=== PATIENT | male | born 1950 | race Caucasian/White ===

== ENCOUNTER 2017-10-04 00:13 | Emergency (ER) | payer OTHER ==
[~2017-10-04] VITALS: Ht 172.7 cm; Wt 83.9 kg
[2017-10-04 00:20] VITALS: Ht 172.7 cm; Wt 83.9 kg
[2017-10-04 02:30] VITALS: BP 170/98
== END 2017-10-04 01:30 | disposition home or self-care (01) ==
LOC: ED 00:13
DX: R04.0 Epistaxis (principal); I10 Essential (primary) hypertension; I48.91 Unspecified atrial fibrillation; Z86.79 Personal history of other diseases of the circulatory system